=== PATIENT | female | born 1975 | race Caucasian/White ===

== ENCOUNTER 2017-11-30 17:57 | Emergency (ER) | payer OTHER ==
[~2017-11-30] VITALS: Ht 167.6 cm; Wt 83.2 kg
[2017-11-30 18:05] VITALS: BP 127/87
--- NOTE | 2017-11-30 18:12 | NUR ---
PT AMBULATED TO BED 2
--- NOTE | 2017-11-30 18:13 | NUR ---
C/O INTERMITTENT CHOKING/CONSTRICTED THROAT WHEN SWALLOWING; SEEN HERE ON 11/29/2017 FOR ASTHMA AND "ACID REFLUX" PER PT. PT HAS INTERMITTENT DRY COUGH AND RASHES NOTED ON ENTIRE FACE. DENIES N/V/D; SKIN IS PINK/WARM/DRY; AAOX4 WITH EVEN AND STEADY GAIT; HR EVEN AND REGULAR; PT DENIES ANY FEVER, CP, SOB AT THIS TIME; PATIENT STATES PAIN OF 0/10 AT THIS TIME; VSS; PATIENT POSITIONED FOR COMFORT; HOB ELEVATED; BEDRAILS UP X2; BED DOWN. ER MD MADE AWARE OF PT STATUS.
--- NOTE | 2017-11-30 18:50 | NUR ---
Patient discharged with v/s stable. Written and verbal after care instructions given and explained. Patient alert, oriented and verbalized understanding of instructions. Ambulatory with steady gait. All questions addressed prior to discharge. ID band removed. Patient advised to follow up with PMD. Rx of OMEPRAZOLE AND PREDNISONE given. Patient educated on indication of medication including possible reaction and side effects. Opportunity to ask questions provided and answered.
[2017-11-30 18:51] VITALS: BP 125/80
== END 2017-11-30 18:50 | disposition home or self-care (01) ==
LOC: MED 17:57
DX: K21.9 Gastro-esophageal reflux disease without esophagitis (principal); J02.9 Acute pharyngitis, unspecified; Z90.49 Acquired absence of other specified parts of digestive tract
CPT/HCPCS: 99283

== ENCOUNTER 2022-01-15 20:31 | Emergency (ER) | payer OTHER ==
[~2022-01-15] VITALS: Ht 165.1 cm; Wt 78.9 kg
[2022-01-15 20:51] VITALS: BP 124/92
--- NOTE | 2022-01-15 20:57 | NUR ---
Patient taken to X-ray via wheel chair.
--- NOTE | 2022-01-15 23:21 | NUR ---
Patient ambulated to bed 9.
--- NOTE | 2022-01-16 00:14 | NUR ---
SWAB COLLECTED AND TAKEN TO LAB.
--- NOTE | 2022-01-16 00:23 | NUR ---
C/O Flu symptoms x 5 days. Patient reported, had flu symtoms, headache, cough, congestion and difficulty breathing. PMHx: Asthma
--- NOTE | 2022-01-16 00:38 | NUR ---
ERMD AT BEDSIDE.
[2022-01-16] MEDS ORDERED: PRED20TA5 PO (00:56)
[2022-01-16] MEDS ORDERED: ALBU0.0912 IH (00:56)
[2022-01-16 01:18] VITALS: BP 142/81
--- NOTE | 2022-01-16 01:18 | NUR ---
Patient discharged with v/s stable. Written and verbal after care instructions given and explained. Patient alert, oriented and verbalized understanding of instructions. Ambulatory with steady gait. All questions addressed prior to discharge. ID band removed. Patient advised to follow up with PMD. Rx of Prednisone and Albuterol sulfate given. Patient educated on indication of medication including possible reaction and side effects. Opportunity to ask questions provided and answered.
== END 2022-01-16 01:18 | disposition home or self-care (01) ==
LOC: MED 20:31
DX: J45.901 Unspecified asthma with (acute) exacerbation (principal); Z20.822 Contact with and (suspected) exposure to COVID-19; B34.9 Viral infection, unspecified; Z79.899 Other long term (current) drug therapy; Z88.5 Allergy status to narcotic agent
CPT/HCPCS: 71045; 99284

== ENCOUNTER 2022-08-06 15:32 | Emergency (ER) | payer OTHER ==
[~2022-08-06] VITALS: Ht 165.1 cm; Wt 73.5 kg
[~2022-08-06 15:32] MED LIST: ALBU0.0912 IH; PRED20TA5 PO
[2022-08-06 16:22] VITALS: BP 170/77
--- NOTE | 2022-08-06 17:35 | NUR ---
Patient discharged with v/s stable. Written and verbal after care instructions given and explained. Patient verbalized understanding. Ambulatory with steady gait. All questions addressed prior to discharge. Advised to follow up with PMD.
== END 2022-08-06 17:35 | disposition home or self-care (01) ==
LOC: MED 15:32
DX: T23.001A Burn of unspecified degree of right hand, unspecified site, initial encounter (principal); J45.909 Unspecified asthma, uncomplicated; D64.9 Anemia, unspecified; Z88.5 Allergy status to narcotic agent; Z79.899 Other long term (current) drug therapy; W86.1XXA Exposure to industrial wiring, appliances and electrical machinery, initial encounter; Y93.89 Activity, other specified; Y92.89 Other specified places as the place of occurrence of the external cause; Y99.8 Other external cause status
CPT/HCPCS: 93005; 99283